=== PATIENT | female | born 1995 | race Caucasian/White ===

== ENCOUNTER 2018-11-13 01:20 | Emergency (ER) | payer OTHER ==
[~2018-11-13] VITALS: Ht 165.1 cm; Wt 121.5 kg
[2018-11-13 01:24] VITALS: BP 147/81; PULSE 95; RESP 18; Ht 165.1 cm; Wt 121.5 kg
[2018-11-13] MEDS ORDERED: LORAZEPAM 1 MG TAB PO ONE (02:30)
--- NOTE | 2018-11-13 02:31 | ERD ---
ER Documentation Chief Complaint Chief Complaint palpitation/cp x 1 1/2 hour HPI This is a 23-year-old female with a history of anxiety presents to ED with complaints of having a chest pain episode that occurred 1-1/2 hours prior to arrival in the ED. 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 Patient states that she started to experience chest pain with palpitations as well as some tingling in the fingertips. Patient states that this episode lasted less than an hour. Patient denies cardiac risk factors including: hypertension, diabetes mellitus, hypercholesterolemia, physical inactivity, smoking, hx of CAD, and prior stress/cath. Patient denies PE risk factors including recent surgery/immob ilization, smoking, prior hx of DVT, coagulopathy, hx of cancer, exogenous estrogen use, one sided lower extremity swelling, and lower extremity pain ROS All systems reviewed and are negative except as per history of present illness. Allergies Allergies: Coded Allergies: No Known Drug Allergies (Verified Allergy, Unknown, 11/13/18) PMhx/Soc Medical and Surgical Hx: pt denies Medical Hx, pt denies Surgical Hx Hx Alcohol Use: No Hx Substance Use: No Hx Tobacco Use: No Smoking Status: Never smoker Physical Exam Vitals Vital Signs Date Temp Pulse Resp B/P (MAP) Pulse Ox O2 O2 Flow FiO2 Time Delivery Rate 11/13/18 97.5 95 18 147/81 100 01:24 (103) Physical Exam Physical Exam Vitals signs: Reviewed by me. General: Well developed, well nourished, in no acute distress. Patient is awake and alert. Head: Normocephalic, atraumatic. Eyes: Normal conjunctiva, Pupils PERRLA, EOM intact grossly ENT: Pharynx is clear, Moist mucous membranes, external ears, nose and mouth normal Neck: Supple, no masses, lymphadenopathy or JVD Respiratory: Clear to auscultation bilaterally with no wheezing, rhonchi, rales, no distress Cardiovascular: RRR, no murmurs, rubs, or gallops Neurologic: Alert and oriented, moving all extremities, normal speech, no focal weakness, no cerebellar signs. Normal mentation Skin: warm and dry, No rash Psych: Anxious Results 24 hrs Current Medications Medications Dose Sig/Racheal Start Time Status Last (Trade) Ordered Route PRN Stop Time Admin Dose Reason Admin Lorazepam 1 mg ONCE ONCE 11/13/18 (Ativan) PO 02:30 11/13/18 02:31 Procedures/MDM EKG, MONITORS, & DIAGNOSTIC IMAGING: EKG read by Richard: Rate/Rhythm: Regular rate and rhythm at a rate of 93 Intervals: Normal Impression: No evidence of ischemia or arrhythmia No ST elevation, no peak T waves, no widened QRS, ER COURSE: The patient was offered Ativan but refuses The patient was stable throughout ED course. I kept the patient and/or family informed of laboratory and diagnostic imaging results throughout the emergency room course. The patient was promptly evaluated and a treatment plan was devised based on H&P and other data. This plan was discussed with the patient who agreed and had no further questions or concerns prior to discharge. MEDICAL DECISION MAKING: This is a 23-year-old female with a history of anxiety presents to ED with complaints of having a chest pain episode that occurred 1-1/2 hours prior to arrival in the ED. 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 Patient states that she started to experience chest pain with palpitations as well as some tingling in the fingertips. The d ifferential diagnosis considered included but was not limited to anxiety, ACS, IN, PE, pneumonia, pneumothorax, among others. Patient is afebrile, non- tachycardic and nontachypneic non-hypoxic. Patient appears anxious but physical examination was otherwise normal.This is likely an anxiety reaction given patient's symptoms and physical examination and history. No evidence of ACS, IN, aortic dissection, PE, pneumonia, pneumothorax, tension pneumothorax, pleural effusion, and other cardiopulmonary emergencies. vitals are stable and he can be managed close outpatient follow-up. Advised patient follow up with primary care clinics 40 hours. Advised patient to engage in more stress reducing techniques such as working out, yoga, meditation and going on walks. Advised patient to follow-up with psychiatry as well. Return to ED with any worsening symptoms DISPOSITION PLAN: We discussed follow up with the patient's primary care doctor within 24 to 48 hours. Patient counseled regarding my diagnostic impression and care plan. Prior to discharge all questions answered. Pt agrees with treatment plan and understands strict return precautions. Precautionary instructions provided including instructions to return to the ER if not improving or for any worsening or changing symptoms or concerns. SPECIALIST FOLLOW UP RECOMMENDED: psychiatry Patient has been advised to follow up with primary care in 1-2 days. Disclaimer: Inadvertent spelling and grammatical errors are likely due to EHR/dictation software use and do not reflect on the overall quality of patient care. Also, please note that the electronic time recorded on this note does not necessarily reflect the actual time of the patient encounter. Blood Pressure Assessment: Patient's blood pressure was elevated (>120/80) but a ppears stable without evidence of hypertension emergency or urgency. The patient was counseled about the risks of hypertension and urged to pursue outpatient monitoring and therapy within a week with their primary care physician. Departure Diagnosis: Primary Impression: Anxiety Condition: Stable Patient Instructions: Your Body's Response to Anxiety, Anxiety Reaction Referrals: TEODORA MARSH,KWAME MELENDEZ,RELL QUICK,KENDRA BAIN,GUI LYNN,ISAIAS Perry MD [facility] YOU HAVE RECEIVED A MEDICAL SCREENING EXAM AND THE RESULTS INDICATE THAT YOU DO NOT HAVE A CONDITION THAT REQUIRES URGENT TREATMENT IN THE EMERGENCY DEPARTMENT. FURTHER EVALUATION AND TREATMENT OF YOUR CONDITION CAN WAIT UNTIL YOU ARE SEEN IN YOUR DOCTORS OFFICE WITHIN THE NEXT 1-2 DAYS. IT IS YOUR RESPONSIBILITY TO MAKE AN APPOINTMENT FOR FOLOW-UP CARE. IF YOU HAVE A PRIMARY DOCTOR --you should call your primary doctor and schedule an appointment IF YOU DO NOT HAVE A PRIMARY DOCTOR YOU CAN CALL OUR PHYSICIAN REFERRAL HOTLINE AT IF YOU CAN NOT AFFORD TO SEE A PHYSICIAN YOU CAN CHOSE FROM THE FOLLOWING [facility] CLINICS [facility] [address] [facility] [address] [facility] [address] [facility] [address] [facility] [address] [facility] [facility]. [address] Additional Instructions: Engage in more physical activity. I recommend that you do yoga, meditation and take time for yourself such taking a bath or going on long walks. Patient advised to return to the ED immediately for new or worsening symptoms. Patient advised to follow up with primary care provider in the next 24-48 hours. Patient verbalized understanding and agrees with treatment plan and course of action. If patient has no primary care they may follow up with one of the community clinics listed on the following page or one of the options listed below [facility] + [address] [address] or [facility] [address] [place] [address] or [facility] [address] [place] [address] JAGJIT SO PA-C Nov 13, 2018 02:31
== END 2018-11-13 02:31 | disposition home or self-care (01) ==
LOC: FTE 01:20
DX: F41.9 Anxiety disorder, unspecified (principal)
CPT/HCPCS: 93005; Z7502